=== PATIENT | female | born 1990 | race Caucasian/White ===

== ENCOUNTER 2022-11-11 10:28 | Outpatient (CLI) | payer OTHER | END 2022-11-11 10:30 | disposition home or self-care (01) | LOC: SONOGRAMA 10:28 | DX: N93.9 Abnormal uterine and vaginal bleeding, unspecified (principal) ==

== ENCOUNTER 2023-06-22 09:35 | Outpatient (CLI) | payer OTHER | END 2023-06-22 09:55 | disposition home or self-care (01) | LOC: MRI 09:35 | DX: F68.11 Factitious disorder imposed on self, with predominantly psychological signs and symptoms (principal) | CPT/HCPCS: 70551 ==